=== PATIENT | female | born 1975 | race Caucasian/White ===

== ENCOUNTER 2019-07-12 23:27 | Emergency (ER) | payer OTHER ==
[~2019-07-12] VITALS: Ht 167.6 cm; Wt 70.5 kg
[2019-07-13] MEDS ORDERED: GABA-533 PO ×2 (00:17→02:00)
[2019-07-13] MEDS ORDERED: OLAN7.5T2 PO (00:17)
[2019-07-13] MEDS ORDERED: PRAZ2 PO ×2 (00:17→02:00)
[2019-07-13] MEDS ORDERED: OLAN10TA3 PO ×2 (00:17→02:00)
[2019-07-13] MEDS ORDERED: HYDR50CA9 PO ×2 (00:17→02:00)
[2019-07-13] MEDS ORDERED: HydrOXYzine PAMOATE 25 MG CAPSULE PO ONE ×2 (02:00→02:45)
[2019-07-13] MEDS ORDERED: OLANZapine 5 MG TABLET PO ONE (02:00)
[2019-07-13] MEDS ORDERED: CEPHALEXIN MONOHYDRATE 500 MG CAPSULE PO ONE (02:00)
[2019-07-13] MEDS ORDERED: KETOROLAC TROMETHAMINE 30 MG/ML VIAL IM ONE (02:00)
[2019-07-13] MEDS ORDERED: LIDOCAINE 5% TRANSDERMAL PATCH TD ONE (02:00)
[2019-07-13] MEDS ORDERED: GABAPENTIN 100 MG CAPSULE PO ONE (02:45)
[2019-07-13] MEDS ORDERED: BACITRACIN 0.9 GM PACKET OINTMENT TP ONE (02:45)
[2019-07-13 03:50] VITALS: BP 128/72
== END 2019-07-13 04:00 | disposition home or self-care (01) ==
LOC: EMS 23:30
DX: S39.012A Strain of muscle, fascia and tendon of lower back, initial encounter (principal); L73.2 Hidradenitis suppurativa; F31.9 Bipolar disorder, unspecified; Z76.0 Encounter for issue of repeat prescription; Z79.899 Other long term (current) drug therapy; X50.9XXA Other and unspecified overexertion or strenuous movements or postures, initial encounter; Y93.89 Activity, other specified; Y92.89 Other specified places as the place of occurrence of the external cause; Y99.8 Other external cause status
CPT/HCPCS: J1885